=== PATIENT | female | born 1990 | race Caucasian/White ===

== ENCOUNTER 2023-07-29 07:03 | Day surgery (SDC) | payer BC ==
[2023-07-21 09:29] VITALS: BP 145/88
[~2023-07-29] VITALS: Ht 152.4 cm; Wt 94.0 kg
[~2023-07-29 07:03] MED LIST: CEFAZOLIN SODIUM 2 GM/20 ML SYR IV SCH; CIPRO500 MG PO; DEXAMETHASONE SOD PHOS 4 MG/ML VIAL ONE; FALMINA1 EACH PO; FAMOTIDINE 20 MG/ 2 ML VIAL ONE; FAMOTIDINE40 MG PO; FLAGYL500 MG PO; HEParin SOD (PORCINE) 5,000 UNIT/0.5 ML SYR SUB-Q SCH; IBLOOD GLUCOSE TEST STRIP 1 EA TEST VI PRN; KETOROLAC TROMETHAMINE 30 MG/ML VIAL ONE; LACTATED RINGER'S 1,000 ML IV ONE; LACTATED RINGER'S 1,000 ML IV SCH; LIDOCAINE HCL 1% 5 ML SDV INJ ONE; METOCLOPRAMIDE HCL 10 MG/2 ML SDV ONE; MIDAZOLAM HCL 2 MG/2 ML VIAL ONE; NORCO 5-325 TA1 EACH PO; OMEPRAZOLE20 MG PO; fentaNYL citrate 100 MCG/2 ML VIAL ONE; ondansetron HCL 4 MG/2 ML VIAL ONE; propofoL 200 MG/20 ML VIAL ONE
[2023-07-29 07:12] VITALS: BP 133/83
[2023-07-29] MEDS ORDERED: BUPIVACAINE HCL 0.25% 50 ML MDV ONE (07:35)
[2023-07-29] MEDS ORDERED: LIDOCAINE HCL 1% 30 ML SDV ONE (07:36)
--- NOTE | 2023-07-29 07:43 | NUR ---
ROUNDS. PT AND DIRECTOR GRAPHICS ADMITTED TO ANXIETY; TEARFUL. PROVIDED ANXIETY CONTAINMENT; REFRAMED EXPERIENCE; PROVIDED PRAYER. DIRECTOR GRAPHICS REMAINED VERY ANXIOUS. PROVIDED HOSPITALITY; EXPLORED COPING MECHANISMS.
[2023-07-29] MEDS ORDERED: HYDROCODONE/ACETA 5/325 TAB PO PRN (09:15)
[2023-07-29] MEDS ORDERED: HYDROmorphone HCL 1 MG/ML SYR IV PRN (09:15)
[2023-07-29] MEDS ORDERED: PROCHLORPERAZINE EDISYLATE 10 MG/2 ML VIAL IV PRN (09:15)
[2023-07-29] MEDS ORDERED: ondansetron HCL 4 MG/2 ML VIAL IV PRN (09:15)
[2023-07-29 09:53] VITALS: BP 143/89
--- NOTE | 2023-07-29 10:09 | NUR ---
07/29/23 Lynn Calderon 0912 PT ARRIVED IN PACU NON RESPONSIVE TO NOXIOUS STIMULI WITH OPA IN PLACE. CHIN LIFT HELD. 920 PT REACTIVE. OPA REMOVED. 924 COUGHING. ORALLY SUCTIONED. 939 SIPPING ON WATER. ICE TO TOP OF SCALP. 0950 TO DS. REPORT GIVEN TO RN. SPOUSE AT BEDSIDE.
[2023-07-29 10:48] VITALS: BP 142/86
--- NOTE | 2023-07-29 11:31 | NUR ---
1040 PT ABLE TO AMBULATE TO THE BATHROOM AND VOID 300 MLS URINE. PT ABLE TO TOLERATE PO FLUIDS AND SNACKS. PT REPORTS NO NAUSEA. 1045 DISCHARGE INFORMATION GONE OVER WITH AT BEDSIDE. PRESCRIPTION SENT WITH PATIENT. PT AND FAMILY HAVE NO FURTHER QUESTIONS AT THIS TIME. VITALS TAKEN. PAIN AT A TOLERABLE LEVEL 3/10 LOCATED IN THE THROAT. 1050 IV DEACCESSED. 1100 PT DISCHARGED FROM DAY SURGERY VIA WHEELCHAIR TO ENTRANCE OF THE HOPSTIAL TO HUSBANDS CAR.
--- NOTE | 2023-07-29 13:23 | OR ---
[facility] [address] [facility] [place] [place] [address] Signed DATE OF OPERATION: 07/29/2023 SURGEON: Naif Resendez MD PREOPERATIVE DIAGNOSIS: Right pilar scalp cyst (4 mm). POSTOPERATIVE DIAGNOSIS: Right pilar scalp cyst (4 mm). PROCEDURE: Excision of right pilar scalp cyst. ESTIMATED BLOOD LOSS: Minimal. INDICATIONS: Edvin is a 32-year-old obese female, asked to see me for an indurated painful lump on the right parietal scalp. She says it is quite difficult with combing her hair and trying to pull her hair up at work. She finally had to go to her primary care provider. She has a 4 mm pilar cyst in this area. She wanted to have it removed. Therefore, she was sent to my office with respect to the above. I explained to Edvin these always bleed significantly and it is very important we get the entire cyst and cyst wall removed, otherwise it will simply return. Consequently, we generally do this in the OR with needle-tip cautery and good lighting and our nursing staff. She understands the nature of a pilar cyst. There is risk including, but not limited to bleeding, infection, scarring, change in contour of the skin as well as recurrent cyst in the same or other locations. She had expressed understanding and wished to proceed. DESCRIPTION OF PROCEDURE: I met with Edvin and her along with our nurse in our preop area. We could all identify the cyst and tasha it appropriately. After this, Edvin was taken into the operating room and placed in the supine position under general endotracheal tube anesthesia. She was given preoperative antibiotics along with subcutaneous heparin. SCDs were utilized. She was then prepped and draped in the usual sterile fashion. I injected local anesthetic around the lesion. A short incision was made over the lesion with a 15 blade knife. We carried this deeper with the needle-tip cautery. We then used our hemostat to go around the pilar cyst and remove it en bloc. We then closed the incision with three interrupted 3-0 nylon simple interrupted sutures. The incision was left open to air. After this, Edvin was awakened from her anesthesia, extubated in the Electronically Signed By: NAFI RESENDEZ MD 07/29/23 1323 PATIENT NAME: EDVIN CHENG OPERATIVE REPORT DATE OF : [birth year] REPORT #: [id number] PHYSICIAN: NAIF RESENDEZ MD PCP: SHANTELLE MARTINEZ MD REPORT IS CONFIDENTIAL AND NOT TO BE RELEASED WITHOUT AUTHORIZATION [facility] [address] [place] [id number] Signed OR, and taken to recovery room in stable condition. Naif Resendez MD ALB/MOHAMUDL /[id number] cc: MD Naif Ramirez MD Copies: NAIF RESENDEZ MD ~ Electronically Signed By: NAIF RESENDEZ MD 07/29/23 1323 PATIENT NAME: EDVIN CHENG OPERATIVE REPORT DATE OF : [birth year] REPORT #: [id number] PHYSICIAN: NAIF RESENDEZ MD PCP: SHANTELLE MARTINEZ MD REPORT IS CONFIDENTIAL AND NOT TO BE RELEASED WITHOUT AUTHORIZATION
--- NOTE | 2023-07-31 18:21 | PATH ---
[facility] [address] [place], [place] [address] Signed SPECIMEN(S): A SCALP PILAR CYST SPECIMEN SOURCE: A. SCALP PILAR CYST CLINICAL HISTORY: Pilar cyst of scalp. FINAL PATHOLOGIC DIAGNOSIS: Scalp pilar cyst: - Benign pilar cyst. JVR:princess MICROSCOPIC EXAMINATION: Histologic sections of all submitted blocks are examined by light microscopy. These findings, together with the gross examination, support the pathologic diagnosis. GROSS DESCRIPTION: The specimen, labeled and designated "Pallavi, scalp pilar cyst," is received in formalin and consists of a well encapsulated portion of white-jara soft tissue (1.0 x 0.8 x 0.8 cm). The tissue is inked blue, and bisected to reveal yellow-white soft cut surfaces. The specimen is submitted entirely in cassette (A1). VB (under the direct supervision of a pathologist) The Gross Description was prepared using a voice recognition system. The report was reviewed for accuracy; however, sound-alike word errors, addition and/or deletions may occur. If there is any question about this report, please contact Client Services. PERFORMING LABORATORY: Technical component was performed by [facility], [address] [place] [id number] (CLIA# [id number]). Professional interpretation was performed by [facility], [address] [place] [id number] (CLIA#: [id number]). Diagnostician: Heraclio Soler MD Pathologist Electronically Signed 07/31/2023 PATIENT NAME: EDVIN CHENG PATHOLOGY DATE OF : [birth year] REPORT #: [id number] PHYSICIAN: BRAULIO PATHOLOGY PCP: SHANTELLE MARTINEZ MD REPORT IS CONFIDENTIAL AND NOT TO BE RELEASED WITHOUT AUTHORIZATION [address] [place], [place] [address] Signed Copies: ~ PATIENT NAME: EDVIN CHENGBETH PATHOLOGY DATE OF : 86 REPORT #: [id number] PHYSICIAN: BRAULIO PATHOLOGY PCP: SHANTELLE MARTINEZ MD REPORT IS CONFIDENTIAL AND NOT TO BE RELEASED WITHOUT AUTHORIZATION
== END 2023-07-29 11:00 | disposition home or self-care (01) ==
LOC: DS 07:03
PROVIDERS: ATTEND Colon & Rectal Surgery
PROC: 0HB0XZZ Excision of Scalp Skin, External Approach (ICD-10-PCS; principal; 2023-07-29 08:15)
DX: L72.11 Pilar cyst (principal); G43.909 Migraine, unspecified, not intractable, without status migrainosus; E66.9 Obesity, unspecified; K21.9 Gastro-esophageal reflux disease without esophagitis; Z68.39 Body mass index [BMI] 39.0-39.9, adult; Z72.0 Tobacco use; Z79.899 Other long term (current) drug therapy; Z88.0 Allergy status to penicillin; Z88.2 Allergy status to sulfonamides
CPT/HCPCS: 00300; J0690; J1100; J1644; J1885; J2250; J2405; J2704; J2765; J3010; J7121

== ENCOUNTER 2025-04-11 12:46 | Day surgery (SDC) | payer BC ==
[~2025-04-11] VITALS: Ht 152.4 cm; Wt 93.6 kg
[~2025-04-11 12:46] MED LIST changes: -CEFAZOLIN SODIUM 2 GM/20 ML SYR IV SCH; -DEXAMETHASONE SOD PHOS 4 MG/ML VIAL ONE; -FAMOTIDINE 20 MG/ 2 ML VIAL ONE; -HEParin SOD (PORCINE) 5,000 UNIT/0.5 ML SYR SUB-Q SCH; +HYDROXYZINE HCL25 MG PO; -KETOROLAC TROMETHAMINE 30 MG/ML VIAL ONE; -LACTATED RINGER'S 1,000 ML IV ONE; -METOCLOPRAMIDE HCL 10 MG/2 ML SDV ONE; -MIDAZOLAM HCL 2 MG/2 ML VIAL ONE; +MIDAZOLAM HCL 5 MG/5 ML VIAL IV PRN; +fentaNYL citrate 100 MCG/2 ML VIAL IV PRN; -fentaNYL citrate 100 MCG/2 ML VIAL ONE; -ondansetron HCL 4 MG/2 ML VIAL ONE; -propofoL 200 MG/20 ML VIAL ONE
[2025-04-11 13:24] VITALS: BP 132/71
[2025-04-11] MEDS ORDERED: fentaNYL citrate 100 MCG/2 ML VIAL ONE (15:05)
[2025-04-11] MEDS ORDERED: MIDAZOLAM HCL 5 MG/5 ML VIAL ONE (15:05)
--- NOTE | 2025-04-11 15:44 | NUR ---
04/11/25 1544 Hyun Walton 1536-PATIENT ARRIVED TO PACU ON 2L NC RR EVEN. PATIENT DROWSY DENIES PAIN OR NAUSEA. LAYING LEFT LATERAL ABDOMEN SOFT. ORIENTED TO PACU ENCOURAGED TO PASS GAS. 1540-DR. CASTILLO AT BEDSIDE TALKING TO PATIENT. PASSING GAS.
[2025-04-11 16:19] VITALS: BP 109/68
--- NOTE | 2025-04-14 18:26 | OR ---
[facility] [address] [place], [place] [address] Signed DATE OF OPERATION: 04/11/2025 SURGEON: Darío Castillo MD PREOPERATIVE DIAGNOSIS: Episodic rectal bleeding. POSTOPERATIVE DIAGNOSIS: Normal colon to cecum, mild hemorrhoidal change. PROCEDURE: Total colonoscopy to cecum. ANESTHESIA: Intravenous sedation, fentanyl 100 mcg, Versed 7 mg. INDICATION: This 34-year-old white woman is a patient Dr. Dena Bolivar referred for "hemorrhoids" and possible colonoscopy. She has had rectal bleeding 2-3 times a year after bowel movements. It is bright and not associated with pain on defecation. She has no family history of colon cancer. She has not had rectal bleeding at the time of my evaluation on March 21. She is admitted at this time to undergo colonoscopy to assess for sources of bleeding. She understands the risk of bleeding, infection and perforation. FINDINGS: The prep was excellent. Complete colonoscopy was undertaken to the cecum with full intubation of the cecum. There was no evidence of diverticulosis, polyps, colitis, or cancer. Retroflexed view showed only minimal hemorrhoidal change. There was no sign of blood. DESCRIPTION OF PROCEDURE: The patient was brought to the endoscopy suite and placed in lateral decubitus position, given intravenous sedation to the point of slurred speech and nystagmus. Digital rectal examination was normal. An Olympus video colonoscope was passed in the rectum and manipulated throughout the colon ultimately intubating the cecum itself. The ileocecal valve and appendiceal orifice were normal. Scope was withdrawn from that point. Examination throughout showed no sign of abnormality specifically no polyps, diverticular formation, colitis, or cancer. Retroflexed view of the rectum showed only minimal hemorrhoidal change. No Electronically Signed By: DARÍO CASTILLO MD 04/14/25 1826 PATIENT NAME: EDVIN CHENG OPERATIVE REPORT DATE OF : 86 REPORT #: [id number] PHYSICIAN: DARÍO CASTILLO MD PCP: DENA BOLIVAR MD REPORT IS CONFIDENTIAL AND NOT TO BE RELEASED WITHOUT AUTHORIZATION [facility] [address] [place] [id number] Signed sign of blood or inflammation. The scope was removed. The patient was taken to the recovery room in good condition. CONCLUDING DIAGNOSIS: No obvious source of rectal bleeding at this time, likely a hemorrhoidal source. PLAN: Would recommend Metamucil one scoop powder daily and repeat colonoscopy in 10 years, sooner if symptoms should develop. If she should have rectal bleeding in the near future, I will see her promptly in the office and we will do anoscopy and likely provide for a hemorrhoidal banding as appropriate. She will otherwise return to the ongoing care of Dr. Dena Bolivar. MD AISHA Huerta/MOHAMUDL /[id number] cc: Dr. Bolivar Copies: ~ Electronically Signed By: DARÍO CASTILLO MD 04/14/25 1826 PATIENT NAME: EDVIN CHENG OPERATIVE REPORT DATE OF : 86 REPORT #: [id number] PHYSICIAN: DARÍO CASTILLO MD PCP: DENA BOLIVAR MD REPORT IS CONFIDENTIAL AND NOT TO BE RELEASED WITHOUT AUTHORIZATION
== END 2025-04-11 16:33 | disposition home or self-care (01) ==
LOC: DS 12:46
PROVIDERS: ATTEND Surgery
PROC: 0DJD8ZZ Inspection of Lower Intestinal Tract, Via Natural or Artificial Opening Endoscopic (ICD-10-PCS; principal; 2025-04-11 14:00)
DX: K62.5 Hemorrhage of anus and rectum (principal); K64.9 Unspecified hemorrhoids; K21.9 Gastro-esophageal reflux disease without esophagitis; F12.20 Cannabis dependence, uncomplicated; Z88.0 Allergy status to penicillin; Z79.899 Other long term (current) drug therapy
CPT/HCPCS: 84703; 99153; G0500; J2250; J3010; J7121